=== PATIENT | male | born 1990 | race Hispanic/Latino ===

== ENCOUNTER 2021-08-06 17:43 | Emergency (ER) | payer MEDICARE ==
--- NOTE | 2021-08-06 18:50 | Emergency Department Report ---
ED Psych HPI - General Chief Complaint: Medical Clearance Stated Complaint: WITHDRAWAL SYPTOMS PSY MEDS Time Seen by Provider: 08/06/21 18:01 Source: patient Mode of arrival: Ambulatory - History of Present Illness Initial Comments: Patient is 31 years old male with history of bipolar disorder. Patient presented to the ER stating that he is experiencing withdrawal symptoms. P carlos stated that his girlfriend kicked him out and took all his psychiatric medication for [place]. Patient stated that he is experiencing hot and cold flashes, heart racing and sometimes confusion. He denied any suicidal homicidal ideation. No visual or auditory hallucination. MD Complaint: other Associated Symptoms: denies other symptoms - Related Data Previous Rx's Medication Instructions Recorded Last Taken Type Divalproex Dr [Julia SEARS] 500 mg PO BID #30 tablet 08/06/21 Unknown Rx Escitalopram [Lexapro] 10 mg PO DAILY #7 tablet 08/06/21 Unknown Rx Lisinopril [Zestril TAB] 30 mg PO QDAY #30 tab 08/06/21 Unknown Rx Nortriptyline HCl 50 mg PO QHS #7 cap 08/06/21 Unknown Rx hydrOXYzine HCL [Atarax] 25 mg PO Q6HR PRN #20 tablet 08/06/21 Unknown Rx Allergies Allergy/AdvReac Type Severity Reaction Status Date / Time No Known Allergies Allergy Unverified 08/06/21 17:46 ED Review of Systems ROS: Stated complaint: WITHDRAWAL SYPTOMS PSY MEDS Other details as noted in HPI Comment: All other systems reviewed and negative Constitutional: chills. denies: fever Respiratory: denies: cough, orthopnea, shortness of breath, SOB with exertion, SOB at rest Cardiovascular: palpitations. denies: chest pain Gastrointestinal: denies: abdominal pain, nausea, vomiting, diarrhea, co nstipation, hematemesis, melena, hematochezia Musculoskeletal: denies: back pain Neurological: denies: headache, weakness, numbness, paresthesias, confusion, abnormal gait Psychiatric: denies: anxiety, depression, auditory hallucinations, visual hallucinations, homicidal thoughts, suicidal thoughts ED Past Medical Hx - Medications Home Medications: Home Medications Medication Instructions Recorded Confirmed Last Taken Type Divalproex Dr [Julia SEARS] 500 mg PO BID #30 tablet 08/06/21 Unknown Rx Escitalopram [Lexapro] 10 mg PO DAILY #7 tablet 08/06/21 Unknown Rx Lisinopril [Zestril TAB] 30 mg PO QDAY #30 tab 08/06/21 Unknown Rx Nortriptyline HCl 50 mg PO QHS #7 cap 08/06/21 Unknown Rx hydrOXYzine HCL [Atarax] 25 mg PO Q6HR PRN #20 tablet 08/06/21 Unknown Rx ED Physical Exam - General Limitations: No Limitations General appearance: alert, in no apparent distress - Head Head exam: Present: atraumatic, normocephalic, normal inspection - Eye Eye exam: Present: normal appearance, PERRL - ENT ENT exam: Present: normal exam, normal orophraynx, mucous membranes moist - Neck Neck exam: Present: normal inspection, full ROM. Absent: tenderness, meningismus - Respiratory Respiratory exam: Present: normal lung sounds bilaterally - Cardiovascular Cardiovascular Exam: Present: tachycardia - GI/Abdominal GI/Abdominal exam: Present: soft, normal bowel sounds. Absent: distended, tenderness, guarding, rebound, rigid, organomegaly, mass, bruit, pulsatile mass, hernia - Extremities Exam Extremities exam: Present: normal inspection, full ROM, normal capillary refill. Absent: tenderness, pedal edema, joint swelling, calf tenderness - Back Exam Back exam: Present: normal inspection, full ROM. Absent: CVA tenderness (R), CVA tenderness (L) - Neurological Exam Neurological exam: Present: alert, oriented X3, CN II-XII intact, normal gait, reflexes normal. Absent: motor sensory deficit - Psychiatric Psychiatric exam: Present: normal mood - Skin Skin exam: Present: warm, intact, normal color ED Course Vital Signs 08/06/21 08/06/21 17:49 19:40 Temperature 97.8 F Pulse Rate 136 H Respiratory 18 Rate Blood Pressure 164/84 [Right] O2 Sat by Pulse 96 99 Oximetry ED Medical Decision Making - Lab Data Result diagrams: 08/06/21 18:57 08/06/21 18:57 - Medical Decision Making Patient is 31 years old male with history of bipolar disorder. Patient presented to the ER stating that he is experiencing withdrawal symptoms. Patient stated that his girlfriend kicked him out and took all his psychiatric medication for [place]. Patient stated that he is experiencing hot and cold flashes, heart racing and sometimes confusion. He denied any suicidal homicidal ideation. No visual or auditory hallucination. Patient remained stable in the ER with a stable vital sign. Labs reviewed and is unremarkable. Patient evaluated by our mental health and indicated that patient does not meet any inpatient criteria. I gave patient Depakote, Lexapro, hydroxyzine. I gave him a 7-day supply until he see his psychiatric. Patient advised to return to the ER if he develop any new symptoms. Critical care attestation.: If time is entered above; I have spent that time in minutes in the direct care of this critically ill patient, excluding procedure time. ED Disposition Clinical Impression: Symptom of drug withdrawal Disposition: HOME / SELF CARE / HOMELESS Is pt being admited?: No Condition: Stable Instructions: Bipolar 1 Disorder Prescriptions: Nortriptyline HCl 50 mg PO QHS #7 cap hydrOXYzine HCL [Atarax] 25 mg PO Q6HR PRN #20 tablet PRN Reason: Itching Divalproex Dr [DepaKOTE DR] 500 mg PO BID #30 tablet Escitalopram [Lexapro] 10 mg PO DAILY #7 tablet Lisinopril [Zestril TAB] 30 mg PO QDAY #30 tab Referrals: VLADIMIR RODRIGUEZ MD [Staff Physician] - 3-5 Days
[2021-08-06 19:10] LABS: Basophils # (Auto) 0.1 K/mm3 (0.0-0.1); Basophils % (Auto) 0.9 % (0.0-1.8); Eosinophils # (Auto) 0.2 K/mm3 (0.0-0.4); Eosinophils % (Auto) 2.4 % (0.0-4.3); Hematocrit 40.2 % (35.5-45.6); Hemoglobin 13.6 gm/dl (11.8-15.2); Lymphocytes # (Auto) 2.6 K/mm3 (1.2-5.4); Lymphocytes % (Auto) 28.7 % (13.4-35.0); Mean Corpuscular HGB Conc 34 % (32-34); Mean Corpuscular Volume 80 fl (84-94); Monocytes # (Auto) 0.8 K/mm3 (0.0-0.8); Monocytes % (Auto) 9.4 % (0.0-7.3); Platelet Count 296 K/mm3 (140-440); Red Blood Count 5.02 M/mm3 (3.65-5.03)
[2021-08-06 19:31] LABS: BUN/Creatinine Ratio 21; Blood Urea Nitrogen 17 mg/dL (9-20); Calcium 9.6 mg/dL (8.4-10.2); Hemolysis Index 14
[2021-08-06 19:56] LABS: Bilirubin,Urine NEG (Negative); Blood,Urine NEG (Negative); Color,Urine Yellow (Yellow); Mucus,Urine 1+ /HPF; Protein,Urine <15 mg/dL mg/dL (Negative)
[2021-08-06 20:01] LABS: Amphetamine Screen,Urine Negative; Benzodiazepines Screen,Urine Negative; Cannabinoid Screen,Urine Negative; Cocaine Screen,Urine Negative; Methadone Screen,Urine Negative; Opiate Screen,Urine Negative
[2021-08-06] MEDS ORDERED: ESCITALOPRAM 10 MG TAB PO ONE (20:28)
[2021-08-06] MEDS ORDERED: DIVALPROEX ER 500 MG TAB PO ONE (20:28)
[2021-08-06 20:57] VITALS: BP 139/86
== END 2021-08-06 20:45 | disposition home or self-care (01) ==
LOC: ED 17:43
DX: F19.239 Other psychoactive substance dependence with withdrawal, unspecified (principal); Z79.899 Other long term (current) drug therapy
CPT/HCPCS: 36415; 80048; 80307; 80320; 81001; 85025; 99284; G0480